=== PATIENT | male | born 1990 | race African-American/Black ===

== ENCOUNTER 2020-07-07 02:16 | Emergency (ER) | payer SELFPAY ==
[~2020-07-07] VITALS: Ht 172.7 cm; Wt 89.7 kg
[~2020-07-07 02:16] MED LIST: CEPH-38 PO; TRM50T PO
[2020-07-07 02:25] VITALS: BP 159/101
--- NOTE | 2020-07-07 02:47 | ED General ---
General Chief Complaint: General Problems/Pain Stated Complaint: CAN'T SLEEP Source of Information: Patient (EXTREMELY VAGUE AND DIFFICULT HISTORIAN) History of Present Illness Date Seen by Provider: Jul 07, 2020 Time Seen by Provider: 02:32 Initial Comments PT ARRIVES VIA POV STATES "I CAN'T SLEEP TONIGHT" STATES HE LAID DOWN AT 0130 AND TRIED TO GO TO SLEEP AND COULDN'T, SO HE CAME HERE. STATES "I WAS CLOSING MY EYES AND I KEPT SEEING STUFF" --STATES HE DOESN'T KNOW WHAT HE WAS SEEING "I CAN'T REMEMBER-I WAS JUST SEEING STUFF" . IS NOT "SEEING STUFF" WHEN HE IS AWAKE--ONLY WHEN HE LAYS DOWN AND CLOSES HIS EYES. PT HAS NOT TAKEN ANYTHING TO TRY TO HELP HIM SLEEP PT STATES HE HAS BEEN GOING THROUGH A DIVORCE FOR SEVERAL MONTHS PT STATES ABOUT 5 MONTHS AGO HE "TOOK SOME PILLS" --DOES NOT KNOW WHAT PILLS HE TOOK, BUT HE WENT TO [facility] AND THEN WAS TRANSFERRED TO [facility] AND WAS IN THE [facility]ALTH UNIT FOR 5 DAYS. STATES HE NEVER TOOK THE PRESCRIBED MEDICATION AND HE NEVER FOLLOWED UP WITH ANYONE AFTER THAT. PT DENIES ANY SUICIDAL OR HOMICIDAL IDEATION PT STATES HE HAS AN APPOINTMENT ON FRIDAY WITH [facility] [place] FOR DEPRESSION, BECAUSE HE IS GOING THROUGH A DIVORCE. PT STATES HE IS CURRENTLY UNEMPLOYED, BUT HAS AN APPOINTMENT IN THE MORNING FOR AN INTERVIEW WITH AMANUEL KEENE. PT LIVES IN [place], [place]. PCP NONE Allergies and Home Medications Patient Home Medication List Home Medication List Reviewed: Yes Review of Systems Review of Systems Constitutional: no symptoms reported Respiratory: no symptoms reported Cardiovascular: no symptoms reported Gastrointestinal: no symptoms reported Psychiatric/Neurological: See HPI Past Mpzrcip-[id number]-Ovmnbs Hx Patient Social History Alcohol Use: Occasionally Uses (HEAVY AT TIMES-STATES " DRANK A BUNCH EVERY DAY FOR 3 MONTHS" -NOW ONLY OCCASIONALLY DRINKS) Recreational Drug Use: Yes (THC) Drug of Choice: THC Smoking Status: Current Someday Smoker Type Used: Cigarettes, Electronic/Vapor Recent Foreign Travel: No Contact w/Someone Who Travel: No Recent Hopitalizations: No Physical Abuse: No Sexual Abuse: No Mistreated: No Fear: No Seasonal Allergies Seasonal Allergies: No Past Medical History Surgeries: No Respiratory: No Cardiac: No Neurological: No Genitourinary: No Gastrointestinal: No Musculoskeletal: No Endocrine: No HEENT: No Cancer: No Psychosocial: Yes (OVERDOSED MARCH 2020-IN [facility] X 5 DAYS) Suicide Attempts, Depression Integumentary: No Blood Disorders: No Physical Exam Vital Signs Capillary Refill : Height, Weight, BMI Height: '" Weight: lbs. oz. 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 Referrals: NO,LOCAL PHYSICIAN (PCP/Family) Primary Care Physician Patient Instructions: Insomnia (DC), Tips for Getting Better Sleep Add. Discharge Instructions: TAKE 2 TYLENOL PM AT BEDTIME FOR SLEEP YOU MAY ALSO TAKE MELATONIN -UP TO 10 MG AT BEDTIME FOR SLEEP KEEP YOUR APPOINTMENT ON FRIDAY WITH [facility]ENTAL [facility] All discharge instructions reviewed with patient and/or family. Voiced understanding. WINIFRED SAMS DO Jul 07, 2020 02:47
[2020-07-07 02:59] LABS: AMPHETAMINE SCREEN, URINE NEGATIVE (NEGATIVE); BARBITURATE SCREEN URINE NEGATIVE (NEGATIVE); BENZODIAZEPINES SCREEN URINE NEGATIVE (NEGATIVE); CANNABINOID SCREEN, URINE NEGATIVE (NEGATIVE); COCAINE SCREEN URINE NEGATIVE (NEGATIVE); METHADONE STAT NEGATIVE (NEGATIVE); METHAMPHETAMINE SCREEN URINE S NEGATIVE (NEGATIVE); OPIATE SCREEN URINE NEGATIVE (NEGATIVE); OXYCODONE STAT NEGATIVE (NEGATIVE); PROPOXYPHENE STAT NEGATIVE (NEGATIVE); TRICYCLIC ANTIDEPRESSANTS SCRE NEGATIVE (NEGATIVE)
== END 2020-07-07 02:51 | disposition home or self-care (01) ==
LOC: ER 02:21
DX: G47.9 Sleep disorder, unspecified (principal); F17.210 Nicotine dependence, cigarettes, uncomplicated; F17.290 Nicotine dependence, other tobacco product, uncomplicated
CPT/HCPCS: 80306; 99281